=== PATIENT | female | born 1960 | race Caucasian/White ===

== ENCOUNTER 2019-09-20 22:38 | Emergency (ER) | payer MEDICAID ==
[~2019-09-20] VITALS: Ht 144.8 cm; Wt 40.8 kg
[2019-09-20 22:40] VITALS: BP 77/24
--- NOTE | 2019-09-20 22:40 | NUR ---
ED Nurse Note: Pt brought in by [facility] from [facility]. Staff reports pt is altered, unable to answer questions. Spo2 52% at facility on RA. Pt on non-rebreather 15L, 91%. Pr is DNI, DNR
--- NOTE | 2019-09-20 22:41 | Emergency Room Report ---
History of Present Illness General Chief Complaint: Altered Level of Consciousness Present Illness HPI Patient is a 59-year-old female sent in by facility after increased altered level conscious and decreased blood pressure. Patient was noted to have decreased level of consciousness and decreased blood pressure. Patient's CODE STATUS was noted to be DNR. Per patient's previous wishes patient is not to be given IV fluids or hospitalized.Patient was noted to be somewhat confused. Patient's noted to be in moderate respiratory distress. Allergies: Coded Allergies: No Known Allergies (Unverified , 09/20/19) Patient History Past Medical History: see triage record Reviewed Nursing Documentation: PMH: Agreed; PSxH: Agreed Review of Systems All Other Systems: limited - By poor historian Physical Exam Vital Signs Date Time Temp Pulse Resp B/P (MAP) Pulse Ox O2 Delivery O2 Flow Rate FiO2 09/20/19 22:28 110 30 74/56 (62) 98 Non-Rebreather 15.0 General Appearance: alert, Chronically Ill Head: atraumatic ENT: normal ENT inspection, hearing grossly normal, normal voice Neck: normal inspection, full range of motion, supple, no bony tend Respiratory: normal inspection, lungs clear, normal breath sounds, no respiratory distress, no retraction, no wheezing Cardiovascular #1: regular rate, rhythm, no edema Gastrointestinal: normal inspection, normal bowel sounds, non tender, soft, no guarding, no hernia Genitourinary: no CVA tenderness Musculoskeletal: normal inspection, back normal, normal range of motion Neurologic: alert, responsive, speech normal, normal inspection Psychiatric: normal inspection, judgement/insight normal, mood/affect normal Medical Decision Making Last Vital Signs Date Time Temp Pulse Resp B/P (MAP) Pulse Ox O2 Delivery O2 Flow Rate FiO2 09/20/19 22:28 110 30 74/56 (62) 98 Non-Rebreather 15.0 Alo Quevedo MD Sep 20, 2019 22:41
[2019-09-20] MEDS ORDERED: SENNA8.6 M2 PO (23:15)
[2019-09-20] MEDS ORDERED: ATORVASTATIN CA10 MG ORAL (23:15)
[2019-09-20] MEDS ORDERED: MULTIVITAMINS1 EAC2 ORAL (23:15)
[2019-09-20] MEDS ORDERED: VITAMIN C500 M1 ORAL (23:15)
[2019-09-20] MEDS ORDERED: IBUPROFEN600 MG ORAL (23:15)
[2019-09-20] MEDS ORDERED: MELATONIN 5 MG1 EAC1 ORAL (23:15)
[2019-09-20] MEDS ORDERED: NORCO 5-325 TA1 EACH ORAL (23:15)
[2019-09-20] MEDS ORDERED: ACETAMINOPHEN325 M1 ORAL (23:15)
[2019-09-20] MEDS ORDERED: COLACE100 MG ORAL (23:15)
[2019-09-20] MEDS ORDERED: CATAPRES0.1 MG ORAL (23:15)
[2019-09-21 00:05] VITALS: BP 77/24
--- NOTE | 2019-09-21 00:05 | NUR ---
ER DISCHARGE NOTE: Pt being taken back to [facility] by [facility], pt is on 14L non-rebreather @ 100% spo2, BP 73/42, HR 114, IV removed.
--- NOTE | 2019-09-21 00:07 | NUR ---
ED Nurse Note: Pt is DNR/DNI, Dr au was spoken to, pt being taken back to facility per drs orders.
== END 2019-09-21 00:05 ==
LOC: EDBD 22:38 → EMR 23:10
DX: R41.82 Altered mental status, unspecified (principal); I95.9 Hypotension, unspecified; Z66 Do not resuscitate
CPT/HCPCS: 99283